=== PATIENT | female | born 1965 | race Caucasian/White ===

== ENCOUNTER 2021-02-07 15:35 | Day surgery (SDC) | payer OTHER ==
[2021-02-07] MEDS ORDERED: Xylocaine 1% Vial 30 ML PF IJ ONE (15:36)
[2021-02-07] MEDS ORDERED: LIDOCAINE HCL 2% 100 MG/5 ML IJ ONE (15:36)
--- NOTE | 2021-02-08 08:35 | XRAY ---
Indication: Lumbar MBB. Intraoperative fluoroscopy provided for 4 seconds. Single digital spot image submitted for interpretation demonstrates posterior needle tip projecting over the expected left S1 nerve root. Procedure was terminated. Correlate with intraoperative findings/report.
--- NOTE | 2021-02-08 08:37 | XRAY ---
4 seconds fluoroscopy time in surgery for left L4-S1 MBB. Exam not completed due to pain tolerance.
== END 2021-02-07 17:32 | disposition home or self-care (01) ==
LOC: SDC-PAIN 15:35
PROVIDERS: ATTEND Psychiatry & Neurology Pain Medicine
DX: M47.816 Spondylosis without myelopathy or radiculopathy, lumbar region (principal); I10 Essential (primary) hypertension; M79.7 Fibromyalgia; J44.9 Chronic obstructive pulmonary disease, unspecified; E07.9 Disorder of thyroid, unspecified; Z79.899 Other long term (current) drug therapy
CPT/HCPCS: 64493; 72100; 77002; J2001

== ENCOUNTER 2021-02-14 11:23 | Day surgery (SDC) | payer OTHER ==
[2021-02-14] MEDS ORDERED: DIPRIVAN 200 MG/20 ML IV ONE (12:14)
--- NOTE | 2021-02-14 14:00 | XRAY ---
Indication: Left L4-S1 MBB. Intraoperative fluoroscopy was provided for 24 seconds. Single digital spot image submitted for interpretation demonstrates posterior needle tips projecting over the expected left L3-S1 nerve roots. Correlate with intraoperative findings/report.
--- NOTE | 2021-02-14 14:24 | XRAY ---
24 seconds fluoroscopy time in surgery for left L4-S1 MBB.
[2021-02-14] MEDS ORDERED: Lactated Ringers 1,000 ML IV ONE (16:32)
== END 2021-02-14 12:48 | disposition home or self-care (01) ==
LOC: SDC-PAIN 11:23
PROVIDERS: ATTEND Psychiatry & Neurology Pain Medicine
DX: M47.816 Spondylosis without myelopathy or radiculopathy, lumbar region (principal); I10 Essential (primary) hypertension; M79.7 Fibromyalgia; J44.9 Chronic obstructive pulmonary disease, unspecified; K59.09 Other constipation; G89.29 Other chronic pain; Z79.899 Other long term (current) drug therapy
CPT/HCPCS: 64493; 64494; 64495; 72020; 77002; J2704

== ENCOUNTER 2021-03-28 14:50 | Day surgery (SDC) | payer OTHER ==
[2021-03-28] MEDS ORDERED: Decadron 4 MG INJ IV ONE (14:51)
[2021-03-28] MEDS ORDERED: BUPIVACAINE 0.5% VIAL IJ ONE (14:51)
[2021-03-28] MEDS ORDERED: Lactated Ringers 1,000 ML IV ONE (15:59)
[2021-03-28] MEDS ORDERED: DIPRIVAN 200 MG/20 ML IV ONE (16:38)
--- NOTE | 2021-03-29 09:12 | XRAY ---
15 seconds fluoroscopy time in surgery for bilateral injections of the SI joints.
--- NOTE | 2021-03-30 10:31 | XRAY ---
Indication: Bilateral SI joint injection. Intraoperative fluoroscopy provided for 15 seconds. 3 digital spot images submitted for interpretation demonstrates posterior needle tip projecting over the inferior left and right SI joints. Correlate with intraoperative findings/report.
== END 2021-03-28 17:10 | disposition home or self-care (01) ==
LOC: SDC-PAIN 14:50
PROVIDERS: ATTEND Psychiatry & Neurology Pain Medicine
DX: M46.1 Sacroiliitis, not elsewhere classified (principal); K21.9 Gastro-esophageal reflux disease without esophagitis; F41.9 Anxiety disorder, unspecified; J44.9 Chronic obstructive pulmonary disease, unspecified; F32.9 Major depressive disorder, single episode, unspecified; M79.7 Fibromyalgia; I10 Essential (primary) hypertension; Z79.899 Other long term (current) drug therapy
CPT/HCPCS: 27096; 72202; 77002; J1100; J2704; G0260

== ENCOUNTER 2022-05-08 11:45 | Day surgery (SDC) | payer OTHER ==
[2022-05-08] MEDS ORDERED: Sodium Chloride 0.9(Preservative Free) 10 ML IJ ONE (11:46)
[2022-05-08] MEDS ORDERED: Decadron 4 MG INJ IV ONE (11:46)
[2022-05-08] MEDS ORDERED: DIPRIVAN 200 MG/20 ML IV ONE (13:54)
[2022-05-08] MEDS ORDERED: MORPHINE SULFATE 2 MG INJ ONE (14:10)
[2022-05-08] MEDS ORDERED: Lactated Ringers 1,000 ML IV ONE (14:29)
--- NOTE | 2022-05-08 15:19 | XRAY ---
Indication: Left L3-S1 transforaminal DRU. Intraoperative fluoroscopy provided for 26 seconds. 4 digital spot image submitted for interpretation demonstrates posterior needle tips projecting over the expected left L3 and L4 nerve roots. Small amount of contrast injected for needle tip placement. Correlate with intraoperative findings/report.
--- NOTE | 2022-05-08 16:35 | XRAY ---
26 seconds fluoroscopy time in surgery for left L3-L5 transforaminal DRU.
== END 2022-05-08 14:21 | disposition home or self-care (01) ==
LOC: SDC-PAIN 11:45
PROVIDERS: ATTEND Psychiatry & Neurology Pain Medicine
DX: M54.16 Radiculopathy, lumbar region (principal); I10 Essential (primary) hypertension; Z79.899 Other long term (current) drug therapy
CPT/HCPCS: 64483; 64484; 72100; 77003; J1100; J2270; J2704; Q9966

== ENCOUNTER 2022-05-15 16:40 | Emergency (ER) | payer OTHER ==
--- NOTE | 2022-05-15 17:58 | ERPHSYRPT ---
- History of Present Illness Time Seen by Provider: 05/15/22 17:00 Source: patient Exam Limitations: no limitations Patient Subjective Stated Complaint: PT states "I was sent over by Dr. Bynum office. I got a nerve block a week ago and it is just getting bad again. My l shelby back hurts so bad." Triage Nursing Assessment: PT presented alert and oriented X 3, skin wpd Pt ambulates with a slow gait. Pt gruning and moaning when she ambulates. PT grasps at her back when she moves. Physician History: Patient is a 57-year-old white female presents to the ER for back pain. She is a patient of Dr. Sy and the pain center and he did an injection of several of her levels of lumbar spine approximately 1 week ago. She states that that did not help that she has severe lower back pain she is on Lortab 07/29/2025 1 e very 6 hours and she has had no recent imaging of her spine. She states she called the pain clinic and was told to come to the ER for imaging and pain treatment. Allergies/Adverse Reactions: No Known Drug Allergies Allergy (Verified 05/15/22 17:02) Home Medications: Albuterol Sulfate [Proair Hfa] 1 - 2 puff IH Q4-6HPRN PRN 01/23/17 [History] Clobetasol Propionate 60 gm TP BID 01/23/17 [History] Fluticasone/Vilanterol [Breo Ellipta 200-25 Mcg INH] 1 each IH DAILY 01/23/17 [History] Montelukast Sodium [Singulair] 10 mg PO DAILY 01/23/17 [History] Polyethylene Glycol 3350 17 gm [Miralax Powder 17GM PACKET] 17 gm PO .PRN 01/23/17 [History] Sertraline HCl 50 mg [Zoloft 50 mg Tablet] 50 mg PO HS 01/23/17 [History] raNITIdine HCL [Zantac] 150 mg PO BID 01/23/17 [History] Cyclobenzaprine HCl 10 mg [Cyclobenzaprine 10 MG] 10 mg PO BID 09/30/17 [History] Furosemide 20 mg [Lasix 20 mg] 20 mg PO DAILY 09/30/17 [History] Hydrocodone/Acetaminophen [[place] 5-325 Tablet] 1 each PO BID PRN PRN 11/27/17 [History] Gabapentin [Neurontin 400 MG] 400 mg PO QID 02/09/18 [History] Hx Tetanus, Diphtheria Vaccination/Date Given: No Hx Influenza Vaccination/Date Given: Yes Hx Pneumococcal Vaccination/Date Given: Yes Immunizations Up to Date: Yes Travel Risk - International Travel Have you traveled outside of the country in past 3 weeks: No - Coronavirus Screening Are you exhibiting any of the following symptoms?: No Close contact with a COVID-19 positive Pt in past 14-21 Days: No - Vaccine Status Have you recieved a Covid-19 vaccination: No - Review of Systems Constitutional: No Fever, No Chills Eyes: No Symptoms Ears, Nose, & Throat: No Symptoms Respiratory: No Cough, No Dyspnea Cardiac: No Chest Pain, No Edema, No Syncope Abdominal/Gastrointestinal: No Abdominal Pain, No Nausea, No Vomiting, No Diarrhea Genitourinary Symptoms: No Dysuria Musculoskeletal: Back Pain, No Neck Pain Skin: No Rash Neurological: Gait Changes, Parasthesia, No Dizziness, No Focal Weakness, No Sensory Changes Psychological: No Symptoms Endocrine: No Symptoms All Other Systems: Reviewed and Negative - Past Medical History Pertinent Past Medical History: Yes Neurological History: No Pertinent History ENT History: Glaucoma Cardiac History: No Pertinent History Respiratory History: No Pertinent History Endocrine Medical History: Hypothyroidism Musculoskeletal History: Arthritis GI Medical History: GERD History: No Pertinent History Psycho-Social History: Anxiety, Depression Female Reproductive Disorders: Uterine Cancer - Past Surgical History Past Surgical History: Yes Female Surgical History: Hysterectomy Other Surgical History: neck- fusion - Social History Smoking Status: Never smoker Exposure to second hand smoke: No Drug Use: none Patient Lives Alone: No - Nursing Vital Signs Nursing Vital Signs: Initial Vital Signs Temperature 97.1 F 05/15/22 16:54 Pulse Rate 79 05/15/22 16:54 Respiratory Rate 22 05/15/22 16:54 Blood Pressure 136/62 05/15/22 16:54 O2 Sat by Pulse Oximetry 97 05/15/22 16:54 Pain Scale Pain Intensity [Lower Back] 8 Pain Intensity 8 - Physical Exam General Appearance: mild distress, alert Eye Exam: PERRL/EOMI, eyes nml inspection Neck Exam: normal inspection, non-tender, supple, full range of motion, No meningismus, No midline tenderness Respiratory Exam: normal breath sounds, lungs clear, No respiratory distress Cardiovascular Exam: regular rate/rhythm, normal heart sounds Gastrointestinal Exam: soft, No tenderness, No mass Back Exam: other (Tenderness to palpation in the lumbar area otherwise negative exam) Extremity Exam: normal inspection, normal range of motion, No calf tenderness, No pedal edema Neurologic Exam: alert, oriented x 3, cooperative, rn ent II-XII nml as tested, normal mood/affect, sensation nml, abnormal gait, No motor deficits Skin Exam: normal color, warm, dry, No rash SpO2 Interpretation: normal SpO2: 97 O2 Delivery: Room Air - CT Exams Lumbar Spine CT Interpretation: Other (Previously noted degenerative disc disease is found to be present there is also a new mild degenerative vacuum disc at L3-4 and L5-S1) Ordered Tests: Active Orders 24 hr Category Date Time Status LUMBAR SPINE W/O [CT] Stat Exams 05/15/22 18:02 Taken Medication Summary Discontinued Medications Generic Name Dose Route Start Last Admin Trade Name Deshawn PRN Reason Stop Dose Admin Methylprednisolone Sodium 0 mg 05/15/22 17:34 05/15/22 18:31 Succinate 125 mg/ Sterile IM 05/15/22 17:35 125 mg Water 2 ml STAT ONE Administration Hydromorphone HCl 1 mg 05/15/22 17:34 05/15/22 18:32 Hydromorphone 1 Mg/1ml Inj 1 Mg/Ml Syringe IV 05/15/22 17:35 1 mg STAT ONE Administration Hydromorphone HCl Confirm 05/15/22 18:30 Hydromorphone 1 Mg/1ml Inj 1 Mg/Ml Syringe Administered 05/15/22 18:31 Dose 1 mg .ROUTE .STK-MED ONE Methylprednisolone Sodium Succinate Confirm 05/15/22 18:30 Methylprednis Sod Succ 125 Mg/2 Ml Vial Administered 05/15/22 18:31 Dose 125 mg .ROUTE .STK-MED ONE Sterile Water Confirm 05/15/22 18:29 Water For Injection,Sterile 10 Ml Vial Administered 05/15/22 18:30 Dose 10 ml IJ .STK-MED ONE - Progress Progress: improved - Departure Departure Disposition: Home Clinical Impression: Chronic low back pain Condition: Stable Critical Care Time: No Referrals: ZEINA BOLAND, SAUSAGE CUTTER [Primary Care Provider] - Follow up/PCP as directed Instructions: Low Back Pain (DC)
[2022-05-15] MEDS ORDERED: Sterile H2O 10 ml IJ ONE (18:29)
[2022-05-15] MEDS ORDERED: Hydromorphone 1 mg/ml Injection ONE (18:30)
[2022-05-15] MEDS ORDERED: solu-MEDROL ONE (18:30)
[2022-05-15] MEDS: solu-MEDROL 125 MG, Sterile H2O 10 ml 2 ML IM ONE ×2 (18:31)
[2022-05-15] MEDS: Hydromorphone 1 mg/ml Injection IV ONE (18:32)
[2022-05-15 19:04] VITALS: O2SAT 96
[2022-05-15 19:32] VITALS: BP 125/57; PULSE 68
--- NOTE | 2022-05-16 08:32 | XRAY ---
Indication: Chronic low back pain radiating left leg. No known injury. Multiple contiguous axial images obtained through the lumbar spine. Sagittal and coronal reformatted images obtained. Comparison: December 15, 2020 Axial images negative for acute fracture, suspicious bony lesions, or spinal canal stenosis. There is again mild broad-based disc bulge at L3-S1 levels with new vacuum disc phenomena at L3-L4 and L5-S1 levels. Stable mild L4-L5 bilateral degenerative facet arthropathy. Sagittal and coronal reformatted images again demonstrates normal lumbar alignment with mild disc space narrowing at L3-L4 and L5-S1 levels. No acute compression fracture or subluxation. Visualized noncontrasted soft tissues again demonstrate mild scattered aortoiliac calcifications. Impression: 1. Mild progressive worsening L3-S1 degenerative disc disease. 2. Stable arteriosclerotic disease. 3. Remaining CT lumbar spine is negative.
== END 2022-05-15 19:32 | disposition home or self-care (01) ==
LOC: ED 16:40
DX: G89.29 Other chronic pain (principal); M54.50 Low back pain, unspecified; Z79.891 Long term (current) use of opiate analgesic; Z79.899 Other long term (current) drug therapy
CPT/HCPCS: 72131; 96372; 96374; 99284; J1170; J2930

== ENCOUNTER 2022-10-10 13:01 | Day surgery (SDC) | payer OTHER ==
[2022-10-10] MEDS ORDERED: Sodium Chloride 0.9(Preservative Free) 10 ML IJ ONE (13:02)
[2022-10-10] MEDS ORDERED: Depo-Medrol 40 MG/ML IM ONE (13:02)
[2022-10-10] MEDS ORDERED: BENADRYL 50 MG/ML ONE (14:25)
--- NOTE | 2022-10-10 16:25 | XRAY ---
Indication: Caudal DRU. Intraoperative fluoroscopy provided for 18 seconds. 2 digital spot image submitted for interpretation demonstrates caudal needle tip projecting mid sacrum. Small amount of contrast injected for needle tip placement. Correlate with intraoperative findings/report.
--- NOTE | 2022-10-10 16:25 | XRAY ---
18 seconds fluoroscopy time in surgery for caudal DRU.
== END 2022-10-10 15:05 | disposition home or self-care (01) ==
LOC: SDC-PAIN 13:01
PROVIDERS: ATTEND Psychiatry & Neurology Pain Medicine
DX: M54.16 Radiculopathy, lumbar region (principal); Z79.899 Other long term (current) drug therapy
CPT/HCPCS: 62323; 72220; 77003; J1030; J1200; Q9966

== ENCOUNTER 2023-02-05 15:22 | Day surgery (SDC) | payer OTHER ==
[2023-02-05] MEDS ORDERED: LIDOCAINE HCL 1% 50 MG/5 ML VL PF IJ ONE (15:23)
[2023-02-05] MEDS ORDERED: Depo-Medrol 40 MG/ML IM ONE (15:23)
[2023-02-05] MEDS ORDERED: BUPIVACAINE 0.5% VIAL IJ ONE (15:23)
[2023-02-05] MEDS ORDERED: Decadron 4 MG INJ IV ONE (15:23)
[2023-02-05] MEDS ORDERED: DIPRIVAN 200 MG/20 ML IV ONE (16:59)
[2023-02-05] MEDS ORDERED: Lactated Ringers 1,000 ML IV ONE (17:34)
--- NOTE | 2023-02-05 19:37 | XRAY ---
Indication: Lumbar DRU. Intraoperative fluoroscopy provided for 11 seconds. 3 digital spot images submitted for interpretation demonstrates posterior needle tip projecting just posterior to lumbosacral junction interspace. Small amount of contrast injected for needle tip placement. Correlate with intraoperative findings/report.
--- NOTE | 2023-02-05 19:37 | XRAY ---
Indication: Bilateral piriformis injection. Intraoperative fluoroscopy provided for 26 seconds. 2 digital spot images submitted for interpretation demonstrates posterior needle tip projecting over the expected left and right piriformis muscles. Small amount of contrast injected for needle tip placement. Correlate with intraoperative findings/report.
--- NOTE | 2023-02-06 08:42 | XRAY ---
11 seconds of fluoroscopy was used in surgery for a lumbar DRU.
--- NOTE | 2023-02-06 08:42 | XRAY ---
26 seconds of fluoroscopy was used in surgery for a bilateral piriformis injection.
== END 2023-02-05 17:55 | disposition home or self-care (01) ==
LOC: SDC-PAIN 15:22
PROVIDERS: ATTEND Psychiatry & Neurology Pain Medicine
DX: M54.16 Radiculopathy, lumbar region (principal); M79.18 Myalgia, other site; Z79.899 Other long term (current) drug therapy
CPT/HCPCS: 20552; 62323; 72100; 72170; 76942; 77002; 77003; J1030; J1100; J2001; J2704; Q9966

== ENCOUNTER 2023-02-08 17:54 | Emergency (ER) | payer OTHER ==
[2023-02-08] MEDS ORDERED: Kenalog-40 IM ONE (18:12)
[2023-02-08] MEDS ORDERED: TORAdol 30 mg Injection IM ONE (18:13)
[2023-02-08 18:19] VITALS: BP 139/77; PULSE 72; O2SAT 97
--- NOTE | 2023-02-08 18:19 | ERPHSYRPT ---
- History of Present Illness Time Seen by Provider: 02/08/23 18:16 Source: patient Exam Limitations: no limitations Patient Subjective Stated Complaint: pt here for lower back pain that is chronic but worse since injection on fri. Triage Nursing Assessment: pt alert, walked in slowly, able to undress self, resp easy, skin w/d/p . edema to lower legs that is normal for her Physician History: Patient is 58-year-old female with significant past medical history of chronic back pain chronic degenerative disc disease of lumbosacral spine for which patient is undergoing paraspinal as well as intervertebral injection by pain management group. Patient recently got a injection 2 days ago but since then patient has a pain in her lower back which is radiating to the both lower extremity. She denies any loss of bowel or bladder tone. Timing/Duration: day(s) (2-3 days) Back Pain Location: lumbar spine Back Pain Radiation: buttocks, upper legs, lower legs Severity of Pain-Max: moderate Severity of Pain-Current: moderate Modifying Factors: Improves With: nothing Associated Symptoms: denies symptoms Previous symptoms: same symptoms as today Allergies/Adverse Reactions: No Known Drug Allergies Allergy (Verified 02/08/23 18:10) Home Medications: Albuterol Sulfate [Proair Hfa] 1 - 2 puff IH Q4-6HPRN PRN 01/23/17 [History] Clobetasol Propionate 60 gm TP BID 01/23/17 [History] Fluticasone/Vilanterol [Breo Ellipta 200-25 Mcg INH] 1 each IH DAILY 01/23/17 [History] Montelukast Sodium [Singulair] 10 mg PO DAILY 01/23/17 [History] Polyethylene Glycol 3350 17 gm [Miralax Powder 17GM PACKET] 17 gm PO .PRN 01/23/17 [History] Sertraline HCl 50 mg [Zoloft 50 mg Tablet] 50 mg PO HS 01/23/17 [History] raNITIdine HCL [Zantac] 150 mg PO BID 01/23/17 [History] Cyclobenzaprine HCl 10 mg [Cyclobenzaprine 10 MG] 10 mg PO BID 09/30/17 [History] Furosemide 20 mg [Lasix 20 mg] 20 mg PO DAILY 09/30/17 [History] Hydrocodone/Acetaminophen [[place] 5-325 Tablet] 1 each PO BID PRN PRN 11/27/17 [History] Gabapentin [Neurontin 400 MG] 400 mg PO QID 02/09/18 [History] Hx Tetanus, Diphtheria Vaccination/Date Given: No Hx Influenza Vaccination/Date Given: Yes Hx Pneumococcal Vaccination/Date Given: Yes Immunizations Up to Date: Yes Travel Risk - International Travel Have you traveled outside of the country in past 3 weeks: No - Coronavirus Screening Are you exhibiting any of the following symptoms?: No - Vaccine Status Have you recieved a Covid-19 vaccination: No - Review of Systems Constitutional: No Fever, No Chills Eyes: No Symptoms Ears, Nose, & Throat: No Symptoms Respiratory: No Cough, No Dyspnea Cardiac: No Chest Pain, No Edema, No Syncope Abdominal/Gastrointestinal: No Abdominal Pain, No Nausea, No Vomiting, No Diarrhea Genitourinary Symptoms: No Dysuria Musculoskeletal: Back Pain, No Neck Pain, No Fall Skin: No Rash Neurological: No Dizziness, No Focal Weakness, No Sensory Changes Psychological: No Symptoms Endocrine: No Symptoms All Other Systems: Reviewed and Negative - Past Medical History Pertinent Past Medical History: Yes Neurological History: No Pertinent History ENT History: Glaucoma Cardiac History: No Pertinent History Respiratory History: No Pertinent History Endocrine Medical History: Hypothyroidism Musculoskeletal History: Arthritis GI Medical History: GERD History: No Pertinent History Psycho-Social History: Anxiety, Depression Female Reproductive Disorders: Uterine Cancer - Past Surgical History Past Surgical History: Yes Female Surgical History: Hysterectomy Other Surgical History: neck- fusion - Social History Smoking Status: Never smoker Exposure to second hand smoke: No Drug Use: none Patient Lives Alone: No - Nursing Vital Signs Nursing Vital Signs: Pain Scale Pain Intensity [Back] 10 Pain Intensity 10 - Physical Exam General Appearance: no apparent distress, alert Eye Exam: PERRL/EOMI, eyes nml inspection Neck Exam: normal inspection, non-tender, supple, full range of motion, No meningismus, No midline tenderness Respiratory Exam: normal breath sounds, lungs clear, No respiratory distress Cardiovascular Exam: regular rate/rhythm, normal heart sounds Gastrointestinal Exam: soft, No tenderness, No mass Back Exam: decreased range of motion, muscle spasm, No CVA tenderness, No vertebral tenderness, No point tenderness Extremity Exam: normal inspection, normal range of motion, No calf tenderness, No pedal edema Neurologic Exam: alert, oriented x 3, cooperative, staff design engineer II-XII nml as tested, normal mood/affect, nml station & gait, sensation nml, No motor deficits Skin Exam: normal color, warm, dry, No rash - Course Nursing assessment & vital signs reviewed: Yes Ordered Tests: Medication Summary Discontinued Medications Generic Name Dose Route Start Last Admin Trade Name Deshawn PRN Reason Stop Dose Admin Ketorolac Tromethamine 60 mg 02/08/23 18:13 Ketorolac Tromethamine 30 Mg/Ml Inj IM 02/08/23 18:14 STAT ONE Triamcinolone Acetonide 40 mg 02/08/23 18:12 Triamcinolone Acetonide 40 Mg/Ml Ml IM 02/08/23 18:13 STAT ONE - Progress Progress: improved, pain not gone completely Counseled pt/family regarding: diagnosis, need for follow-up Medical Desision Making - Diagnostic Testing Diagnostic test were ordered, analyzed, and reviewed by me: No - Risk of complications Minimal Risk: Minimal risk of morbidity - Departure Departure Disposition: Home Clinical Impression: Chronic low back pain Qualifiers: Back pain laterality: bilateral Sciatica presence: with sciatica Sciatica laterality: bilateral sciatica Qualified Code(s): M54.42 - Lumbago with sciatica, left side; M54.41 - Lumbago with sciatica, right side; G89.29 - Other chronic pain Condition: Stable Critical Care Time: No Referrals: DOCTOR,NO FAMILY [Primary Care Provider] - Follow up/PCP as directed KOTA SHANKAR MD [CONSULTING PHYSICIAN] - Follow up/PCP as directed Instructions: Low Back Pain (DC), Sciatica (DC) Additional Instructions: Discharge/Care Plan JET LACY was seen on 02/08/23 in the Emergency Room. The patient was counseled regarding Diagnosis,Lab results, Imaging studies, need for follow up and when to return to the Emergency Room. Prescriptions given: Discharge Note I have spoken with the patient and/or caregivers. I have explained the patient's condition, diagnosis and treatment plan based on the information available to me at this time. I have answered the patient's and/or caregiver's questions and addressed any concerns. The patient and/or caregivers have as good understanding of the patient's diagnosis, condition and treatment plan as can be expected at this point. The vital signs have been stable. The patient's condition is stable and appropriate for discharge from the emergency department. The patient will pursue further outpatient evaluation with the primary care physician or other designated or consulting physician as outlined in the discharge instructions. The patient and/or caregivers are agreeable to this plan of care and follow-up instructions have been explained in detail. The patient and/or caregivers have received these instruction. The patient/and or caregivers are aware that any significant change in condition or worsening of symptoms should prompt an immediate return to this or the closest emergency department or call 911. JET LACY was seen on 02/08/23 n the Emergency Room. At that time you were t reated for an emergent condition, during your visit Laboratory, Radiology and/or other procedures may have been ordered. It is very important that you follow-up with your Primary Care Physician NO FAMILY DOCTOR within the next 24-48 hours to review your Emergency Room visit and the final results of testing that was ordered. Some test results such as Urine Cultures, Blood Cultures, and other cultures if ordered will not be finalized for 24-48 hours. If you do not have a Primary Care Provider please call the medical records department at [phone] ext [phone] to obtain a copy of your results or you may sign into our patient portal to obtain these results by visiting us @ [email or web address] and completing the following steps: 1. Click on the Patient Portal link 2. Click the Patient Self Enrollment Link to complete the enrollment form and entering your 3. Once the enrollment form is completed you will receive an email with a temporary ID and password at the email address you provided. 4. Next choose a user name and password. Your user name must be at least 4 characters long and your password must be at least 4 characters long. 5. Choose a security question from the list and provide your answer to the question. If you already have signed into the Health Portal you may access your Health Care Information 19/05 by the following steps: 1. Login to our website @ [email or web address] 2. Enter your original user name and password. FAQS The [facility] Health Portal is an online tool that contains your Lab Results, Radiology Reports, Visit History, Discharge Instructions and Health Summary Lab and Radiology Results will not be available for 72 hours on the portal. The Portal is a secure site, passwords are encryted and URLs are re-written so they cannot be copied and pasted. You and authorized family members are the only ones who can access your Portal. Also there is a timeout feature that protects your information if you leave the Portal page open. If you have technical difficulty please use the Contact Us link on the page this will allow you to submit any questions you have regarding the Portal or you may contact the Medical Record Department at [phone] ext [phone].
[2023-02-08] MEDS ORDERED: TORAdol 30 mg Injection ONE (18:20)
[2023-02-08] MEDS ORDERED: Kenalog-40 ONE (18:21)
== END 2023-02-08 19:11 | disposition home or self-care (01) ==
LOC: ED 17:54
DX: G89.29 Other chronic pain (principal); M54.42 Lumbago with sciatica, left side; M54.41 Lumbago with sciatica, right side; Z79.891 Long term (current) use of opiate analgesic; Z79.899 Other long term (current) drug therapy; Z28.310 Unvaccinated for COVID-19
CPT/HCPCS: 96372; 99283; J1885; J3301

== ENCOUNTER 2023-03-19 07:47 | Day surgery (SDC) | payer OTHER ==
[2023-03-19] MEDS ORDERED: LIDOCAINE HCL 2% 100 MG/5 ML IJ ONE (07:48)
[2023-03-19] MEDS ORDERED: Depo-Medrol 40 MG/ML IM ONE (07:48)
[2023-03-19] MEDS ORDERED: DIPRIVAN 200 MG/20 ML IV ONE (08:43)
[2023-03-19] MEDS ORDERED: Xylocaine-Mpf 2% 5 Ml Vial ONE (09:17)
--- NOTE | 2023-03-19 10:54 | XRAY ---
Indication: Bilateral L4-S1 MBB. Intraoperative fluoroscopy provided for 16 seconds. Single digital spot image submitted for interpretation demonstrates posterior needle tips projecting over the expected left and right L4-S1 nerve roots. Correlate with intraoperative findings/report.
[2023-03-19] MEDS ORDERED: Lactated Ringers 1,000 ML IV ONE (14:43)
== END 2023-03-19 09:40 | disposition home or self-care (01) ==
LOC: SDC-PAIN 07:47
PROVIDERS: ATTEND Psychiatry & Neurology Pain Medicine
DX: M47.816 Spondylosis without myelopathy or radiculopathy, lumbar region (principal); Z79.899 Other long term (current) drug therapy
CPT/HCPCS: 64493; 64494; 72020; 77002; J1030; J2704

== ENCOUNTER 2023-08-27 11:56 | Day surgery (SDC) | payer OTHER ==
[2023-08-27] MEDS ORDERED: BUPIVACAINE 0.5% VIAL IJ ONE (11:57)
[2023-08-27] MEDS ORDERED: DIPRIVAN 200 MG/20 ML IV ONE (13:34)
[2023-08-27] MEDS ORDERED: Lactated Ringers 1,000 ML IV ONE (14:12)
--- NOTE | 2023-08-27 14:41 | XRAY ---
Indication: Bilateral L4-S1 MBB. Intraoperative fluoroscopy provided for 12 seconds. Single digital spot image submitted for interpretation demonstrates posterior needle tips projecting over the expected left and right L4-S1 nerve roots. Correlate with intraoperative findings/report.
--- NOTE | 2023-08-27 14:51 | XRAY ---
12 seconds of fluoroscopy was used in surgery for a bilateral L4-S1 MBB.
== END 2023-08-27 14:05 | disposition home or self-care (01) ==
LOC: SDC-PAIN 11:56
PROVIDERS: ATTEND Psychiatry & Neurology Pain Medicine
DX: M47.816 Spondylosis without myelopathy or radiculopathy, lumbar region (principal); Z79.899 Other long term (current) drug therapy
CPT/HCPCS: 64493; 64494; 72020; 77002; J2704